=== PATIENT | male | born 1965 | race Caucasian/White ===

== ENCOUNTER 2020-03-09 08:35 | Outpatient (CLI) | payer OTHER, SELFPAY ==
--- NOTE | 2020-03-09 | US_ITS ---
WS: [id number] DIAGNOSTIC BILATERAL DIGITAL MAMMOGRAM WITH CAD LIMITED RIGHT BREAST ULTRASOUND HISTORY: breast mass, RIGHT side. COMPARISON: None available. TECHNIQUE: Bilateral craniocaudad, mediolateral oblique, and mediolateral views are submitted. Spot c ompression RIGHT MLO. Computer aided detection utilized. Breast composition: The breasts are almost entirely fatty. Palpable marker is placed over the superio r lateral RIGHT breast. There is no underlying mass or distortion. No soft tissue thickening. Postsur gical changes in the anterior LEFT breast from prior lumpectomy from cancer. RIGHT breast ultrasound, limited. Ultrasound directed to 6:00 in the area of the palpable abnormality. There is no underlying mass. No suspicious findings. US/US breast RT limited* [id number] IMPRESSION: BI-RADS: 2-Benign FOLLOW UP: See Report No RIGHT breast abnormality noted in this male patient.
--- NOTE | 2020-03-09 08:30 | MM_ITS ---
WS: [id number] DIAGNOSTIC BILATERAL DIGITAL MAMMOGRAM WITH CAD LIMITED RIGHT BREAST ULTRASOUND HISTORY: breast mass, RIGHT side. COMPARISON: None available. TECHNIQUE: Bilateral craniocaudad, mediolateral oblique, and mediolateral views are submitted. Spot c ompression RIGHT MLO. Computer aided detection utilized. Breast composition: The breasts are almost entirely fatty. Palpable marker is placed over the superio r lateral RIGHT breast. There is no underlying mass or distortion. No soft tissue thickening. Postsur gical changes in the anterior LEFT breast from prior lumpectomy from cancer. RIGHT breast ultrasound, limited. Ultrasound directed to 6:00 in the area of the palpable abnormality. There is no underlying mass. No suspicious findings. MM/[place] [id number] IMPRESSION: BI-RADS: 2-Benign FOLLOW UP: See Report No RIGHT breast abnormality noted in this male patient.
== END 2020-03-09 08:36 | disposition home or self-care (01) ==
LOC: RADSHAW 08:41
PROVIDERS: PCP Emergency Medicine Emergency Medical Services; Visit Provider Surgery
DX: N63.15 Unspecified lump in the right breast, overlapping quadrants (principal)
CPT/HCPCS: 76642; 77066

== ENCOUNTER 2021-10-01 15:09 | Emergency (ER) | payer OTHER, SELFPAY ==
--- NOTE | 2021-10-01 15:12 | CTR_ITS ---
PROCEDURE INFORMATION: Exam: CT Lumbar Spine Without Contrast Exam date and time: 10/01/2021 4:09 PM Age: 56 years old Clinical indication: Low back pain TECHNIQUE: Imaging protocol: Computed tomography images of the lumbar spine without contrast. Radiation optimization: All CT scans at this facility use at least one of these dose optimization techniques: automated exposure control; mA and/or kV adjustment per patient size (includes targeted exams where dose is matched to clinical indication); or iterative reconstruction. COMPARISON: No relevant prior studies available. RADIATION DOSE METRICS: Total DLP (mGy-cm): 2207.21 FINDINGS: Vertebrae: No acute fracture. Normal alignment. Discs/Spinal canal/Neural foramina: No significant disc protrusion. No severe spinal canal stenosis. No significant neural foraminal narrowing. Soft tissues: Unremarkable. CT/CT lumbar spine wo con* [id number] IMPRESSION: No acute findings.
[2021-10-01 15:33] VITALS: BP 135/85; PULSE 67; RESP 14; TEMP 36.8; O2SAT 97; BMI 29.5
--- NOTE | 2021-10-01 15:52 | ED_ITS ---
HPI - Back Pain/Injury General: Chief Complaint: Back Pain/Injury Stated Complaint: lower back catscan/xray Time Seen by Provider: 10/01/21 15:41 History of Present Illness: Patient is a 56-year-old male who comes to the ED with lower back pain. [facility] for further evaluation and to get a CT of the lumbar spine. He has a history of degenerative disc disease. His back pain started approximately 1 week ago. He denies any known fall, trauma or injury to cause lower back pain. Back pain is gradually progressed and gotten more painful over the past week. Endorses pain radiating down right leg. He rates his pain currently 9 out of 10. Certain movements with his torso causes increased pain or spasms in lower back. Denies any bladder or bowel incontinence, lower extremity weakness or any pelvic anesthesia. Associated symptoms: Deny abdominal pain, chills, dysuria, fatigue, fever(s), hematuria, nausea or vomiting Review of Systems Const: Denies: fever(s), chills or fatigue Eyes: Denies: change in vision or eye discomfort ENMT: Denies: throat pain, odynophagia, nasal discharge or nasal congestion Card: Denies: chest pain, palpitations, edema, swelling of feet/ankles, dyspnea on exertion or orthopnea Resp: Denies: dyspnea, productive cough or non-productive cough GI: Denies: abdominal pain, nausea, vomiting, diarrhea, constipation or hematochezia : Denies: flank pain, difficulty urinating, dysuria or hematuria Musc: Reports: back pain; Denies: neck pain or extremity swelling Skin/Breast: Denies: rash or new lesions Neuro: Denies: headache(s), numbness in extremities or weakness in extremities PFS ED PFSH: Medical History GERD (gastroesophageal reflux disease) Osteoarthritis Surgical History H/O circumcision H/O colonoscopy 2018 H/O esophagogastroduodenoscopy H/O excision of mass H/O lumpectomy left and right breast H/O thyroidectomy left H/O wrist surgery with hardware History of tonsillectomy S/P shoulder surgery Family History Mother CAD (coronary artery disease) Diabetes Hypertension Family/Other Cancer Denies family history of Anesthesia complication Bleeding disorder Social History Smoking and tobacco status: never smoked Alcohol intake: never Household members: spouse Marital status: Current occupational status: retired History of recent travel: No Physical Exam Const: COMMON NORMALS: patient oriented x3 and alert GENERAL APPEARANCE: cooperative HENMT: COMMON NORMALS: normocephalic HEAD & SCALP: normocephalic MOUTH: Normal oral and palatal mucosa present THROAT: posterior oropharynx normal and uvula midline Eye: COMMON NORMALS: Equal, round and reactive pupils present and conjunctivae normal CONJUNCTIVA: Yes conjunctivae normal PUPIL: Yes Equal, round and reactive pupils present Neck/C-Spine: COMMON NORMALS: supple GENERAL: Yes normal visual inspection Resp: COMMON NORMALS: normal respiratory effort, No retractions, No use of accessory muscles and clear to auscultation bilaterally AUSCULTATION: clear to auscultation bilaterally Cardio: COMMON NORMALS: regular rate, regular rhythm, S1 normal heart sound present, S2 normal heart sound present, No gallops present (Cardio), No clicks present (Cardio), No murmurs present (Cardio) and Peripheral pulses 2+ throughout RATE: regular rate RHYTHM: regular rhythm HEART SOUNDS: S1 normal heart sound present and S2 normal heart sound present PERIPHERAL PULSES: Peripheral pulses 2+ throughout GI: COMMON NORMALS: Normal to inspection, nondistended, normoactive bowel sounds present, Soft to palpation, non-tender and no masses PALPATION: Yes Soft to palpation : COMMON NORMALS: Yes no CVA tenderness BLADDER/KIDNEY EXAM: Yes no CVA tenderness Back/Pelvis: COMMON NORMALS: no CVA tenderness LUMBAR SPINE/LOWER BACK: Yes pain with ROM, Yes lumbar spinal tenderness Lumbar spinal tenderness location: L3, L4 and L5 and Yes paraspinal muscle tenderness Lumbar paraspinal muscle tenderness: bilateral Extremity: COMMON NORMALS: normal to inspection Neuro: COMMON NORMALS: patient oriented x3 and moves all extremities SENSORIUM/ORIENTATION: Yes alert Skin: GENERAL SKIN EXAM: dry skin Course Vital Signs: Vital signs: Vital Signs Temperature 98.3 F 10/01/21 15:33 Pulse Rate 67 10/01/21 15:33 Respiratory Rate 15 10/01/21 16:38 Blood Pressure 135/85 10/01/21 15:33 Pulse Oximetry 97 10/01/21 16:38 MDM - Back Pain/Injury Medical Decision Making Patient is a 56-year-old male comes to the ED with lower back pain that radiates down right leg. Symptoms have been going on now for a week. Denies any injury or trauma to cause symptoms. He says he has a history of degenerative disc d isease. [facility] done of his lumbar spine. Dr. Lin ordered the CT lumbar spine of the patient while he was in waiting room and CT imaging was performed before patient was brought back into room for me to evaluate them. He has no cauda equina symptoms. vitals are stable. He has some bilateral lumbar paraspinal muscle tenderness along with some lumbar spinal tenderness around L3-L4 and L5. Rest of exam is benign. CT of lumbar spine showed no acute fractures or findings. Patient was given a shot of a steroid, Norflex and a Percocet here in the ED to help with symptoms. He was diagnosed with lumbar radiculopathy he was discharged home with a prescription for prednisone, a muscle relaxer and Celebrex for pain. He was told to follow-up with his PCP in the next week for reevaluation. Return to ED precautions given. Patient understood and agreed with plan. Labs Radiology Impressions Lumbar Spine CT 10/01/21 15:12 IMPRESSION: No acute findings. Discharge Plan Discharge Patient Disposition: Home Clinical Impression: Lumbar radiculopathy Condition: Stable Prescriptions: New cyclobenzaprine 10 mg tablet 10 mg PO BID PRN (Reason: muscle spasm) Qty: 20 0RF Celebrex 100 mg capsule 100 mg PO BID PRN (Reason: pain) Qty: 30 0RF prednisone 20 mg tablet 20 mg PO BID 7 Days Qty: 14 0RF No Action omeprazole 20 mg capsule,delayed release(DR/EC) 20 mg PO TID 0RF sucralfate [Carafate] 1 gram tablet 1 gm PO TID 0RF methocarbamol 750 mg tablet 750 mg PO TID 0RF diclofenac potassium 50 mg tablet 50 mg PO BID 0RF tramadol 50 mg tablet 50 mg PO TID PRN0RF trazodone 100 mg tablet 100 mg PO DAILY 0RF Discharge Orders: Discharge ED (Routine); Ordered 10/01/21 Ordered By: Gerardo Chavira Referrals: Josue Villegas, DO [Primary Care Provider] - Discharge Diet: Regular Discharge Activity: Increase activity as tolerated Patient Instructions: Lumbar Radiculopathy (ED) Activity Restrictions/Additional Instructions: Follow-up with medical provider as directed in the next 5 to 7 days reevaluation.Take medications as prescribed. Cyclobenzaprine is a muscle relaxer and can cause some drowsiness so take at night before going to bed. You can take either your previously prescribed diclofenac or the Celebrex I am pres cribing for pain. Do not take both the Celebrex and diclofenac daily, so choose one medication daily to take for pain. You can start taking the steroid prescription tomorrow, since you were given a dose of steroid here in the ED. Apply cold pack or heat on lower back to help with symptoms. Stretch lower back daily. Return to the ER or your medical provider if condition worsens. Please read and understand discharge instructions. Thank you for choosing [facility] for your healthcare needs today. Please realize this is an emergency room and that we are providing you with a medical screening exam and this may not be complete and all inclusive of all the testing and or work up that you may need to determine your ailment or severity of your illness. It is very important that you follow up as instructed or that you return to the Emergency Department should you have concerns or if your condition changes or worsens in any way. Coding Level of Care Code ED Advertising Coordinator for Ciara Singh Exam Comprehensive
[2021-10-01 16:38] VITALS: RESP 15; O2SAT 97
[2021-10-01] MEDS: orphenadrine 30 mg/mL Inj 2 mL 60 MG IM (16:38)
[2021-10-01] MEDS: dexamethasone 10 mg/mL INJ IM (16:38)
[2021-10-01] MEDS: oxyCODONE-APAP 5-325 mg Tablet 1 TAB PO (16:38)
== END 2021-10-01 17:24 | disposition home or self-care (01) ==
PROVIDERS: Emergency Provider Physician Assistant; PCP Emergency Medicine Emergency Medical Services
DX: M54.16 Radiculopathy, lumbar region (principal)
CPT/HCPCS: 72131; 96372; 99283; J1100; J2360

== ENCOUNTER → 2022-05-26 09:15 | Outpatient (BNVA) | payer OTHER, SELFPAY | PROVIDERS: PCP Emergency Medicine Emergency Medical Services; Referring Provider Emergency Medicine Emergency Medical Services; Visit Provider Physician Assistant | DX: M54.12 Radiculopathy, cervical region (principal); M47.812 Spondylosis without myelopathy or radiculopathy, cervical region | CPT/HCPCS: 72050; 99203 ==

== ENCOUNTER 2022-06-15 11:30 | Outpatient (CLI) | payer OTHER, SELFPAY ==
--- NOTE | 2022-06-15 11:45 | MR_ITS ---
WS: [id number] MRI CERVICAL SPINE NONCONTRAST HISTORY: LEFT arm numbness and pain. COMPARISON: Cervical spine radiographs 05/26/2022 Technique: Multiplanar, multisequence noncontrast imaging of the cervical spine. Normal posterior cervical alignment. No fractures or marrow edema. Signal within the cervical cord is normal. Visualized posterior fossa is unremarkable. Craniocervical junction, C1 and C2 relationship, odontoid process and soft tissues are normal. C2-C3: Normal. C3-C4: Normal. C4-C5: Mild disc bulging and facet arthritis. Mild central with bilateral foraminal stenosis. Predomi nantly due to osteophytes and disc disease. C5-C6: Mild disc bulging with a central disc protrusion. Disc protrusion extends greatest to the RIGH T. Effacement of ventral CSF but no displacement of the cord. Mild central with moderate bilateral fo raminal stenosis. C6-C7: No stenosis. Bilateral nerve root sleeve diverticula. C7-T1: No stenosis. Bilateral nerve root sleeve diverticula. Asymmetric appearance of the thyroid gland. The LEFT lobe is enlarged while the RIGHT lobe is not vis ualized. No history of surgery. MR/MR cervical spin wo con* [id number] IMPRESSION: 1. Mild central with moderate bilateral foraminal stenosis at C5-6 due to disc and osteophyte disease. Slightly greater disc encroachment into the RIGHT. 2. Mild central and bilateral foraminal stenosis at C4-5.
== END 2022-06-15 11:31 | disposition home or self-care (01) ==
LOC: RAD 11:34
PROVIDERS: PCP Emergency Medicine Emergency Medical Services; Visit Provider Physician Assistant
DX: M54.2 Cervicalgia (principal); M48.02 Spinal stenosis, cervical region
CPT/HCPCS: 72141

== ENCOUNTER → 2022-07-21 14:31 | Outpatient (BNVA) | payer OTHER, SELFPAY | PROVIDERS: PCP Emergency Medicine Emergency Medical Services; Visit Provider Physician Assistant | DX: M47.22 Other spondylosis with radiculopathy, cervical region (principal) | CPT/HCPCS: 99213 ==

== ENCOUNTER → 2022-08-31 10:59 | Outpatient (BNVA) | payer OTHER, SELFPAY | PROVIDERS: PCP Emergency Medicine Emergency Medical Services; Referring Provider Emergency Medicine Emergency Medical Services; Visit Provider Anesthesiology Pain Medicine | DX: M47.812 Spondylosis without myelopathy or radiculopathy, cervical region (principal); M54.12 Radiculopathy, cervical region | CPT/HCPCS: 99204 ==

== ENCOUNTER → 2022-10-31 09:55 | Outpatient (BNVA) | payer OTHER, SELFPAY | PROVIDERS: PCP Emergency Medicine Emergency Medical Services; Visit Provider Anesthesiology Pain Medicine | DX: M47.812 Spondylosis without myelopathy or radiculopathy, cervical region (principal); M54.12 Radiculopathy, cervical region | CPT/HCPCS: 99214 ==

== ENCOUNTER → 2023-09-07 12:54 | Outpatient (BNVA) | payer OTHER, SELFPAY | PROVIDERS: PCP Emergency Medicine Emergency Medical Services; Referring Provider Emergency Medicine Emergency Medical Services; Visit Provider Dermatology | DX: D48.5 Neoplasm of uncertain behavior of skin (principal); L02.92 Furuncle, unspecified; L82.1 Other seborrheic keratosis; L57.0 Actinic keratosis; L21.8 Other seborrheic dermatitis | CPT/HCPCS: 11102; 17000; 99204 ==

== ENCOUNTER 2023-10-18 16:03 | Emergency (ER) | payer OTHER, SELFPAY ==
[2023-10-18 16:05] VITALS: BP 142/98; PULSE 62; RESP 18; TEMP 36.8; O2SAT 98; BMI 27.7
--- NOTE | 2023-10-18 16:07 | XRR_ITS ---
PROCEDURE INFORMATION: Exam: XR Chest Exam date and time: 10/18/2023 4:14 PM Age: 58 years old Clinical indication: Pain; Angina pectoris; Additional info: Cp TECHNIQUE: Imaging protocol: Radiologic exam of the chest. Views: 1 view. COMPARISON: MR cervical spin wo con* [id number] 06/15/2022 12:04 PM FINDINGS: Airway: Patent Lungs: Unremarkable. No consolidation. Pleural spaces: Unremarkable. No pleural effusion. No pneumothorax. Heart/Mediastinum: Heart magnified by technique. Bones/joints: No acute skeletal abnormality or aggressive osseous lesion. XR/XR chest 1V portable [id number] IMPRESSION: No acute findings.
--- NOTE | 2023-10-18 16:07 | CTR_ITS ---
PROCEDURE INFORMATION: Exam: CT Head Without Contrast Exam date and time: 10/18/2023 4:20 PM Age: 58 years old Clinical indication: Headache; Patient HX: Pain to back left side of head, denies injury; Additional info: CARREON TECHNIQUE: Imaging protocol: Computed tomography of the head without contrast. Radiation optimization: All CT scans at this facility use at least one of these dose optimization techniques: automated exposure control; mA and/or kV adjustment per patient size (includes targeted exams where dose is matched to clinical indication); or iterative reconstruction. COMPARISON: MR cervical spin wo con* [id number] 06/15/2022 12:04 PM RADIATION DOSE METRICS: Total DLP (mGy-cm): 1365 FINDINGS: Brain: Age-related brain atrophy and mild chronic small vessel disease without acute intracranial hemorrhage, midline shift, or mass effect. Cerebral ventricles: Mild compensatory ventricular dilation. Paranasal sinuses: Visualized sinuses are unremarkable. No fluid levels. Mastoid air cells: Visualized mastoid air cells are well aerated. Bones: Unremarkable. No acute fracture. Soft tissues: Unremarkable. CT/CT head wo con* [id number] IMPRESSION: No acute intracranial abnormality.
--- NOTE | 2023-10-18 16:08 | ECG_ITS ---
[facility] Test Date: 2023-10-18 Pat Name: Eliezer Lopez Department: Room: Gender: Male Archivist: : 1965 Requested By: Bon Serna Order Number: [id number] Reynaldo MD: Reid Woodall M.D. Measurements Intervals [place] Rate: 66 P: 53 OK: 193 QRS: 22 QRSD: 89 T: -18 QT: 423 QTc: 446 Interpretive Statements SINUS RHYTHM WITH FREQUENT VENTRICULAR PREMATURE COMPLEXES IN A BIGEMINAL PATTERN POSSIBLE LEFT ATRIAL ENLARGEMENT [-0.1mV P-WAVE IN V1/V2] NONSPECIFIC ST & T-WAVE ABNORMALITY No previous ECG available for comparison Electronically Signed On 10-18-2023 17:02:40 CDT by Reid Woodall M.D. [id number]
--- NOTE | 2023-10-18 16:08 | W.ED.HA ---
HPI - Headache General: Chief Complaint: Arrhythmia/Palpitations Stated Complaint: Palpitations, CARREON Time Seen by Provider: 10/18/23 16:07 Source: patient and EMS Mode of arrival: EMS Limitations: no limitations History of Present Illness: 58-year-old male who has been having he states headaches for quite some times he had went to the [place] today as he has been having off-and-on headaches it has been mild for the last 3 weeks they are concerned that his pulse was low and said his pulse was in the 30s and was concerned his heart rate was irregular and called EMS. He does appear to have frequent PVCs he is in bigeminy here heart rate is 66. He has had some mild aches he states across his chest but no severe chest pain states has been going on for weeks as well denies any shortness of breath Associated symptoms: Reports chest pain; Deny fever(s), nausea, rash or vomiting Review of Systems Const: Denies: fever(s), chills, body aches or change in appetite Eyes: Denies: blurry vision or eye discomfort ENMT: Denies: throat pain or dental pain Card: Reports: chest pain and irregular heart rhythm Resp: Denies: dyspnea GI: Denies: abdominal pain, nausea, vomiting or diarrhea Musc: Denies: neck pain or back pain Skin/Breast: Denies: rash Neuro: Reports: headache(s) [facility] ED PFSH: Medical History (Updated 10/18/23 @ 17:25 by Bon Serna MD) GERD (gastroesophageal reflux disease) Osteoarthritis Surgical History S/P shoulder surgery H/O lumpectomy left and right breast H/O excision of mass H/O colonoscopy 2018 History of tonsillectomy H/O wrist surgery with hardware H/O circumcision H/O esophagogastroduodenoscopy H/O thyroidectomy left Family History Mother CAD (coronary artery disease) Diabetes Hypertension Family/Other Cancer Denies family history of Anesthesia complication Bleeding disorder Social History Smoking and tobacco/nicotine status: never used tobacco/nicotine Alcohol intake: never Substance/Drug Use: never Household members: spouse Marital status: Current occupational status: retired Physical Exam Const: COMMON NORMALS: no acute distress, patient oriented x3 and healthy appearing HENMT: COMMON NORMALS: normocephalic and atraumatic HEAD & SCALP: normocephalic and atraumatic Eye: COMMON NORMALS: Equal, round and reactive pupils present and EOMs intact bilaterally PUPIL: Yes Equal, round and reactive pupils present Neck/C-Spine: COMMON NORMALS: full ROM and supple Chest: COMMONS NORMALS: normal inspection of the chest Resp: COMMON NORMALS: normal respiratory effort, No retractions, No use of accessory muscles and clear to auscultation bilaterally AUSCULTATION: clear to auscultation bilaterally Cardio: COMMON NORMALS: regular rate, regular rhythm and No murmurs present (Cardio) RATE: regular rate RHYTHM: regular rhythm GI: COMMON NORMALS: Normal to inspection, nondistended, normoactive bowel sounds present, Soft to palpation, non-tender and no masses PALPATION: Yes Soft to palpation Extremity: COMMON NORMALS: normal to inspection and full ROM Neuro: COMMON NORMALS: patient oriented x3, moves all extremities and no focal motor deficits Psych: COMMON NORMALS: mental status grossly normal, Normal thought process present and cooperative THOUGHT PROCESS: Normal thought process present Skin: COMMON NORMALS: no rashes or lesions noted and no wounds GENERAL SKIN EXAM: no rashes or lesions noted Course Vital Signs: Vital signs: Vital Signs Temperature 98.2 F 10/18/23 16:05 Pulse Rate 66 10/18/23 16:53 Respiratory Rate 15 10/18/23 16:53 Blood Pressure 136/79 10/18/23 16:53 Pulse Oximetry 96 10/18/23 16:53 Oxygen Delivery Me thod Room Air 10/18/23 16:05 MDM - Headache Medical Decision Making Patient presents here with complaint of headache his head CT is normal sound like tension headaches no signs of meningitis or migraine hemorrhage. [facility] rate heart rate here has been in the 70s he has had PVCs at times. His troponin here is negative no signs of ACS we will get him cardiology follow-up he is to return if worsening he understands agrees to plan Medical Records I reviewed the patient's medical records. Lab Data I reviewed the patient's lab results. 10/18/23 15:49 10/18/23 15:49 Radiology Impressions Chest X-Ray 10/18/23 16:07 IMPRESSION: No acute findings. Head CT 10/18/23 16:07 IMPRESSION: No acute intracranial abnormality. Laboratory Results WBC 7.35 10^3/uL (3.29-11.43) 10/18/23 15:49 RBC 5.79 10^6/uL (3.85-5.65) H 10/18/23 15:49 Hgb 16.50 g/dL (11.27-16.99) 10/18/23 15:49 Hct 48.2 % (37-53) 10/18/23 15:49 MCV 83.2 fl (82-101) 10/18/23 15:49 MCH 28.5 pg (27-33) 10/18/23 15:49 MCHC 34.2 g/dL (30-55) 10/18/23 15:49 RDW 14.1 % (12.1-15.1) 10/18/23 15:49 Plt Count 252 10^3/cmm (157-399) 10/18/23 15:49 MPV 11.6 fL (7.4-10.4) H 10/18/23 15:49 Neut % (Auto) 51.1 % 10/18/23 15:49 Lymph % (Auto) 37.6 % 10/18/23 15:49 [place] % (Auto) 7.3 % 10/18/23 15:49 Eos % (Auto) 2.6 % 10/18/23 15:49 Baso % (Auto) 1.0 % 10/18/23 15:49 Neut # (Auto) 3.76 10^3/uL (1.8-7.7) 10/18/23 15:49 Lymph # (Auto) 2.8 10^3/uL (0.8-4.8) 10/18/23 15:49 [place] # (Auto) 0.5 10^3/uL (0.2-0.9) 10/18/23 15:49 Eos # (Auto) 0.2 10^3/uL (0.0-0.8) 10/18/23 15:49 Baso # (Auto) 0.1 10^3/uL (0.0-0.1) 10/18/23 15:49 Nucleated RBC % (auto) 0 % 10/18/23 15:49 Nucleated RBCs # 0.0 /100WBC 10/18/23 15:49 Sodium 141 mmol/L (136-145) 10/18/23 15:49 Potassium 3.9 mmol/L (3.5-5.1) 10/18/23 15:49 Chloride 101 mmol/L (98-107) 10/18/23 15:49 Carbon Dioxide 25 mmol/L (22-29) 10/18/23 15:49 Anion Gap 18.9 (5-19) 10/18/23 15:49 BUN 14 mg/dL (6-20) 10/18/23 15:49 Creatinine 0.9 mg/dL (0.7-1.2) 10/18/23 15:49 GFR Calculation 86.7 mL/min (90-130) L 10/18/23 15:49 Glucose 82 mg/dL (65-115) 10/18/23 15:49 Calculated Osmolality 292 mOsm/kg (285-295) 10/18/23 15:49 Calcium 9.5 mg/dL (8.5-10.5) 10/18/23 15:49 Total Bilirubin 0.7 mg/dL (0.15-1.2) 10/18/23 15:49 AST 15 U/L (0-40) 10/18/23 15:49 ALT 17 U/L (0-41) 10/18/23 15:49 Alkaline Phosphatase 85 U/L (40-130) 10/18/23 15:49 Troponin T Baseline 10 ng/L (0-15) 10/18/23 15:49 Total Protein 7.4 g/dL (6.6-8.7) 10/18/23 15:49 Albumin 4.5 g/dL (3.5-5.2) 10/18/23 15:49 Globulin 2.9 g/dL (1.3-4.6) 10/18/23 15:49 Lipase 17 U/L (13-60) 10/18/23 15:49 All radiology interpretation(s) finalized by discharge EKG Data EKG 1: I personally reviewed and interpreted this EKG as follows: EKG interpretation date: 10/18/23 EKG interpretation time: 16:08 Interpretation: nsr hr 66 frequent pvc in bigemin no st elevaion qrs 89 qtc 437 Discharge Plan Discharge Patient Disposition: Home Clinical Impression: Ventricular premature beats, Headache Condition: Stable Prescriptions: No Action omeprazole 20 mg capsule,delayed release(DR/EC) 20 mg PO TID sucralfate [Carafate] 1 gram tablet 1 gm PO TID tramadol 50 mg tablet 50 mg PO TID PRN trazodone 100 mg tablet 100 mg PO DAILY mirtazapine 15 mg tablet 15 mg PO DAILY rivaroxaban 20 mg tablet 20 mg PO DAILY Rx Instructions: must administer with evening meal pregabalin [Lyrica] 150 mg capsule 150 mg PO DAILY cyclobenzaprine 10 mg tablet 10 mg PO BID PRN (Reason: muscle spasm) Qty: 20 0RF Celebrex 100 mg capsule 100 mg PO BID PRN (Reason: pain) Qty: 30 0RF Discharge Orders: Discharge ED (Routine); Ordered 10/18/23 Ordered By: Bon Serna Referrals: Josue Villegas, [Primary Care Provider] - 4-7 days Discharge Diet: Advance as tolerated Discharge Activity: Resume usual activity Patient Instructions: Premature Ventricular Contractions (ED), General Headache (ED) Coding Level of Care Code ED Forklift Driver for Ciara Singh
[2023-10-18 16:15] VITALS: PULSE 89; RESP 20; O2SAT 98
[2023-10-18 16:21] LABS: Basophils # 0.1 10^3/uL (0.0-0.1); Eosinophils # 0.2 10^3/uL (0.0-0.8); Eosinophils % 2.6 %; Hematocrit 48.2 % (37-53); Lymphocytes # 2.8 10^3/uL (0.8-4.8); Lymphocytes % 37.6 %; Mean Corpuscular HGB Conc 34.2 g/dL (30-55); Mean Corpuscular Hemoglobin 28.5 pg (27-33); Mean Corpuscular Volume 83.2 fl (82-101); Mean Platelet Volume 11.6 fL (7.4-10.4); Monocytes # 0.5 10^3/uL (0.2-0.9); Monocytes % 7.3 %; Neutrophils # 3.76 10^3/uL (1.8-7.7); Neutrophils % 51.1 %; Nucleated Red Blood Cells % 0 %; Platelet Count 252 10^3/cmm (157-399); Red Blood Count 5.79 10^6/uL (3.85-5.65); Red Cell Distribution Width 14.1 % (12.1-15.1); White Blood Count 7.35 10^3/uL (3.29-11.43)
[2023-10-18 16:41] LABS: Alanine Aminotransferase 17 U/L (0-41); Albumin Level 4.5 g/dL (3.5-5.2); Alkaline Phosphatase 85 U/L (40-130); Aspartate Amino Transferase 15 U/L (0-40); Blood Urea Nitrogen 14 mg/dL (6-20); Calcium 9.5 mg/dL (8.5-10.5); Carbon Dioxide 25 mmol/L (22-29); Chloride 101 mmol/L (98-107); Creatinine Clr Calc Pharmacy 124.4993; Globulin 2.9 g/dL (1.3-4.6); Glomerular Filtration Rate 86.7 mL/min (90-130); Glucose 82 mg/dL (65-115); Lipase 17 U/L (13-60); Osmolality Calculated 292 mOsm/kg (285-295); Sodium 141 mmol/L (136-145); Total Bilirubin 0.7 mg/dL (0.15-1.2); Total Protein 7.4 g/dL (6.6-8.7)
[2023-10-18 16:43] LABS: Anion Gap 18.9 (5-19); Potassium 3.9 mmol/L (3.5-5.1)
[2023-10-18 16:53] VITALS: BP 136/79; PULSE 66; RESP 15; O2SAT 96
[2023-10-18 16:53] LABS: Troponin(5th) Baseline 10 ng/L (0-15)
[2023-10-18] MEDS: aspirin 81 mg Chew Tablet 324 MG PO (16:53)
[2023-10-18 17:31] VITALS: BP 136/79; PULSE 66; RESP 15; O2SAT 96
--- NOTE | 2023-10-19 07:17 | DCPLANNER ---
message [facility] for er f/u
--- NOTE | 2023-10-19 07:18 | DCPLANNER ---
emailed august at [facility] for [facility] for cardiology
== END 2023-10-18 17:32 | disposition home or self-care (01) ==
PROVIDERS: Emergency Provider Emergency Medicine; PCP Emergency Medicine Emergency Medical Services
DX: I49.3 Ventricular premature depolarization (principal); R51.9 Headache, unspecified
CPT/HCPCS: 70450; 71045; 80053; 83690; 84484; 85025; 93005; 99285

== ENCOUNTER → 2024-09-05 09:54 | Outpatient (BNVA) | payer OTHER, SELFPAY | PROVIDERS: PCP Emergency Medicine Emergency Medical Services; Visit Provider Dermatology | DX: L73.9 Follicular disorder, unspecified (principal); L21.8 Other seborrheic dermatitis; L82.1 Other seborrheic keratosis; D22.5 Melanocytic nevi of trunk; Z08 Encounter for follow-up examination after completed treatment for malignant neoplasm; Z85.828 Personal history of other malignant neoplasm of skin; Z80.8 Family history of malignant neoplasm of other organs or systems | CPT/HCPCS: 99214 ==

== ENCOUNTER → 2025-03-18 08:19 | Outpatient (BNVA) | payer OTHER, SELFPAY | PROVIDERS: PCP Emergency Medicine Emergency Medical Services; Referring Provider Family Medicine Geriatric Medicine; Visit Provider Internal Medicine | DX: R94.2 Abnormal results of pulmonary function studies (principal); R06.02 Shortness of breath; R06.2 Wheezing; Z99.89 Dependence on other enabling machines and devices; J44.9 Chronic obstructive pulmonary disease, unspecified; T78.40XA Allergy, unspecified, initial encounter; X58.XXXA Exposure to other specified factors, initial encounter | CPT/HCPCS: 36415; 71046; 85025; 86003; 99204; Q3014 ==

== ENCOUNTER 2025-04-18 10:37 | Emergency (ER) | payer OTHER, SELFPAY ==
[2025-04-18 10:55] VITALS: BP 145/92; PULSE 64; RESP 17; TEMP 36.8; O2SAT 97; BMI 29.3
--- NOTE | 2025-04-18 11:09 | ED_ITS ---
HPI - Back Pain/Injury General: Chief Complaint: Back Pain/Injury Stated Complaint: Lower back pain Time Seen by Provider: 04/18/25 11:07 Source: patient Mode of arrival: wheelchair Limitations: no limitations History of Present Illness: Patient is a 59-year-old male presents to ED today with complaint of lower back pain. Patient states yesterday he was bending over to lift a box when he immediately felt something in his lower back like lightning . Patient states pain starts in his lower back and radiates down both legs (right > left). States he normally has some degree of neuropathy to his lower legs. He reportedly went to [facility] ED yesterday but left before he was seen due to lengthy wait times. He reportedly was seen at the [facility] today and told to come to the emergency department stating because I could have a smashed or a ruptured disc . Patient states he is not able to ambulate secondary to pain. He has been trying to use a walker at home. He denies saddle anesthesia. He has not had any episodes of bowel/bladder incontinence/retention. MD elicited complaint: back pain and back injury Onset (ago): day(s) (yesterday) Timing: constant Severity: severe Pain scale (0-10): 10 Quality: burning, sharp and stabbing Location: lumbar spine Radiation: left leg below the knee and right leg below the knee Exacerbating factors: movement Relieving factors: none Associated symptoms: Reports no associated symptoms and difficulty walking (secondary to back pain); Deny abdominal pain, chills, dysuria, fatigue, fever(s) or hematuria Work related injury: No Related Data Home Medications ?Medication ?Instructions ?Recorded ?Confirmed albuterol sulfate 90 mcg/actuation 2 puff inhalation Q ID PRN 03/18/25 04/18/25 aerosol inhaler (Ventolin HFA) Shortness Of Breath carboxymethylcellulose sodium 0.5 1 drp ophthalmic (ey e) QID 03/18/25 04/18/25 % eye drops in a dropperette clindamycin phosphate 1 % topical 1 applic topical BID 03/18/25 04/18/25 solution cyanocobalamin (vitamin B-12) 1,000 mcg PO DAILY 03/1804/18/25 1,000 mcg capsule folic acid 1 mg tablet 1 mg PO DAILY 03/18/2504/18 hydroxyzine HCl 25 mg tablet 25 mg PO BEDTIME PRN slee p and 03/18/25 04/18/25 anxiety ketoconazole 2 % shampoo 1 applic topical .[id number] 03/18/25 04/18/25 ketoconazole 2 %-niacinamide 4 % 1 applic topical BID PRN Skin 03/18/25 04/18/25 topical cream Irritation ondansetron 4 mg disintegrating 4 mg PO Q8H PRN Nausea And Vomiting 03/18/25 04/18/25 tablet pantoprazole 20 mg tablet,delayed 20 mg PO DAILY 03/1804/18/25 release clobetasol 0.05 % scalp solution 1 applic topical DILAN Y PRN 04/18/25 04/18/25 scaling/itching sildenafil 100 mg tablet See Rx Instructions .Route . COMPLEX 04/18/25 04/18/25 Previous Rx's ?Medication ?Instructions ?Recorded fluticasone 250 mcg-salmeterol 50 1 inh inhalation BID #60 ea 03/19/25 mcg/dose blistr powdr for inhalation (Wixela Inhub) dexamethasone 6 mg tablet 6 mg PO DAILY #6 tabs hydrocodone 7.5 mg-acetaminophen 1 tab PO Q6H PRN pain #15 tabs 04/18/25 325 mg tablet ibuprofen 800 mg tablet 800 mg PO Q8H PRN pain #20 t abs 04/18/25 methocarbamol 500 mg tablet 1,000 mg (2 x 500 mg) PO Q 8H #30 04/18/25 tabs Allergies Allergy/AdvReac Type Severity Reaction Status Date / Time morphine AdvReac ADR-Vomitin Verified 04/18/25 11:01 g Review of Systems Const: Denies: fever(s), chills, body aches, fatigue or malaise Card: Denies: chest pain Resp: Denies: dyspnea GI: Denies: abdominal pain : Denies: flank pain, dysuria or hematuria Musc: Reports: back pain; Denies: neck pain, extremity pain, extremity swelling, joint pain, joint swelling, joint redness or joint warmth Skin/Breast: Denies: rash Neuro: Reports: numbness in extremities (bilateral LEs) and difficulty walking (secondary to back pain); Denies: headache(s), weakness in extremities, lack of coordination, dizziness or confusion PFSH ED PFSH: Medical History Pulmonary air trapping Wheezing GERD (gastroesophageal reflux disease) Osteoarthritis Surgical History S/P shoulder surgery H/O lumpectomy left and right breast H/O excision of mass H/O colonoscopy 2018 History of tonsillectomy H/O wrist surgery with hardware H/O circumcision H/O esophagogastroduodenoscopy H/O thyroidectomy left Family History Mother CAD (coronary artery disease) Diabetes Hypertension Family/Other Cancer Denies family history of Anesthesia complication Bleeding disorder Social History Smoking and tobacco/nicotine status: never used tobacco/nicotine Alcohol intake: never Substance/Drug Use: never Household members: spouse Marital status: Current occupational status: retired Physical Exam Const: COMMON NORMALS: average body habitus, patient oriented x3, no limitations, healthy appearing, alert and well nourished GENERAL APPEARANCE: cooperative and in distress (appears uncomfortable secondary to pain) ORIENTATION/CONSCIOUSNESS: Yes awake, Yes oriented to person, Yes oriented to place and Yes oriented to time Resp: COMMON NORMALS: normal respiratory effort and clear to auscultation bilaterally AUSCULTATION: clear to auscultation bilaterally Cardio: COMMON NORMALS: regular rate and regular rhythm RATE: regular rate RHYTHM: regular rhythm GI: COMMON NORMALS: Normal to inspection, nondistended, normoactive bowel sounds present, Soft to palpation, non-tender, No hepatosplenomegaly present and no masses PALPATION: Yes Soft to palpation and Yes No hepatosplenomegaly present : COMMON NORMALS: Yes no CVA tenderness BLADDER/KIDNEY EXAM: Yes no CVA tenderness Back/Pelvis: COMMON NORMALS: no CVA tenderness THORACIC SPINE/UPPER BACK: No thoracic spinal tenderness LUMBAR SPINE/LOWER BACK: Yes lumbar spinal tenderness, No paraspinal muscle spasm and No mass present PELVIS: Yes buttocks normal SACROILIAC JOINTS: Yes SI joints normal SACRUM: no tenderness COCCYX: no tenderness Extremity: COMMON NORMALS: normal to inspection, full ROM, capillary refill normal, no joint enlargement, no clubbing, cyanosis or edema, no calf tenderness and no pedal edema NARRATIVE EXTREMITY EXAM: DP/PT pulses to L LE were able to be palpated; cannot palpate them on R LE or find with doppler-he states he has poor circulation ; clinically would have a low suspicion for acute arterial occulsion/dissection but will go ahead and order US to confirm flow GENERAL: Yes normal exam except as noted Neuro: COMMON NORMALS: patient oriented x3, moves all extremities, no focal motor deficits and no sensory deficits noted SENSORIUM/ORIENTATION: Yes alert, Yes oriented to person, Yes oriented to place and Yes oriented to time GAIT: Yes Unable to assess gait Skin: COMMON NORMALS: no rashes or lesions noted GENERAL SKIN EXAM: no rashes or lesions noted Course Vital Signs: Vital signs: Vital Signs Temperature 98.3 F 04/18/25 10:55 Pulse Rate 61 04/18/25 11:40 Respiratory Rate 20 H 04/18/25 11:40 Blood Pressure 142/97 04/18/25 11:40 Pulse Oximetry 99 04/18/25 11:40 Oxygen Delivery Me thod Room Air 04/18/25 11:40 MDM - Back Pain/Injury Medical Decision Making Patient here for lower back pain after he was bending over yesterday to lift something. CT scan showing small central disc protrusion at L5-S1 with slight contact on the S1 nerve roots and a mild disc encroachment into the right subarticular recess at L3-L4. Patient does feel somewhat better after medications given here. He does have chronic neuropathy to his legs. No acute neurologic deficits today. On initial examination, pulses to his right distal extremity were difficult to find hence why US arterial was ordered-no evidence for occulsion. Patient will be placed on medications to help with his discomfort and [facility] Return ED precautions discussed. Differential Diagnosis Likely lumbar radiculopathy, sciatica, strain of lumbar region and AAA Medical Records I reviewed the patient's medical records. Labs Radiology Impressions Lumbar Spine CT 04/18/25 11:24 IMPRESSION: 1. No acute lumbar spine fracture. 2. Slight stable anterior wedging of L1 may be congenital or from a prior injury. 3. Small central disc protrusion at L5-S1 with slight contact on the S1 nerve roots, RIGHT greater than LEFT. 4. Mild disc encroachment into the RIGHT subarticular recess at L3-4. Minimal disc contact on the traversing RIGHT L4 nerve root. All radiology interpretation(s) finalized by discharge Discharge Plan Discharge Patient Disposition: Home Clinical Impression: Lumbosacral radiculopathy at S1 Condition: Stable Prescriptions: New methocarbamol 500 mg tablet 1,000 mg PO Q8H Qty: 30 0RF ibuprofen 800 mg tablet 800 mg PO Q8H PRN (Reason: pain) Qty: 20 0RF dexamethasone 6 mg tablet 6 mg PO DAILY Qty: 6 0RF hydrocodone-acetaminophen 7.5-325 mg tablet 1 tab PO Q6H PRN (Reason: pain) Qty: 15 0RF No Action albuterol sulfate [Ventolin HFA] 90 mcg/actuation HFA aerosol inhaler 2 puff inhalation QID PRN (Reason: Shortness Of Breath) pantoprazole 20 mg tablet,delayed release (DR/EC) 20 mg PO DAILY ketoconazole 2 % shampoo 1 applic topical .2-3XWEEKLY folic acid 1 mg tablet 1 mg PO DAILY hydroxyzine HCl 25 mg tablet 25 mg PO BEDTIME PRN (Reason: sleep and anxiety) ondansetron 4 mg tablet,disintegrating 4 mg PO Q8H PRN (Reason: Nausea And Vomiting) clindamycin phosphate 1 % solution 1 applic topical BID carboxymethylcellulose sodium 0.5 % dropperette 1 drp ophthalmic (eye) QID cyanocobalamin (vitamin B-12) 1,000 mcg capsule 1,000 mcg PO DAILY ketoconazole-niacinamide 2-4 % cream 1 applic topical BID PRN (Reason: Skin Irritation) fluticasone propion-salmeterol [Wixela Inhub] 250-50 mcg/dose blister with device 1 inh inhalation BID Qty: 60 11RF sildenafil 100 mg Tablet See Rx Instructions .ROUTE .COMPLEX Rx Instructions: Take 1 tablet by mouth twice weekly as needed for erectile dysfunction. Administer 60 minutes prior to sexual activity. Limit 6 doses per 30 days. clobetasol 0.05 % Solution 1 applic TOPICAL DAILY PRN (Reason: scaling/itching) Discharge Orders: Discharge ED (Routine); Ordered 04/18/25 Ordered By: Patrica Hall Referrals: Josue Villegas DO [Primary Care Provider, Emergency Medicine] Patient Instructions: Lumbar Disc Herniation (ED), Lumbar Radiculopathy (ED), Opioid Safety, Pain Management, Patient Portal & [facility] Instructions Activity Restrictions/Additional Instructions: As we discussed, [facility] symptoms are not improving. You may return to the emergency department at anytime for worsening or uncontrollable pain, inability to ambulate, urinary retention or bowel incontinence, significant weakness to your legs, or any other concerns you may have. Print Language: Macanese Coding Level of Care Code ED Real Estate Rep for Ciara Singh
--- NOTE | 2025-04-18 11:24 | CT_ITS ---
WS: [id number] CT LUMBAR SPINE, noncontrast. HISTORY: back pain, lower leg paresthesias TECHNIQUE: Contiguous 2.0 mm axial imaging are performed. Sagittal and coronal reformats are submitted and reviewed. All CT scans at [facility] use at least one of these dose optimization techniques: automated exposure control; mA and/or kV adjustment per patient size (includes targeted exams where dose is matched to clinical indication); or iterative reconstruction. IV contrast: None DLP: 942.10 mGy.cm COMPARISON: 10/01/2021 Mild curvature of the lumbar spine. No acute fractures are identified. Very slight anterior wedging of L1 similar to 10/01/2021. 2 mm retrolisthesis of L1, L2 and L3. Disc spaces are well preserved. No fractures. Mild bilateral facet joint arthropathy at L4-5 and L5-S1. No destructive bone lesion. L1-2: Normal. L2-3: Normal. L3-4: Mild facet and ligamentum flavum hypertrophy. Mild annular disc bulging. Very mild encroachment into the RIGHT subarticular recess. Very minimal contact on the traversing RIGHT L4 nerve root. L4-5: Mild disc bulging with ligamentum flavum and facet arthritis. No stenosis. L5-S1: Small central disc protrusion. Very slight contact on the S1 nerve roots, RIGHT greater than LEFT. Paravertebral soft tissues are negative. CT/CT lumbar spine wo con* [id number] IMPRESSION: 1. No acute lumbar spine fracture. 2. Slight stable anterior wedging of L1 may be congenital or from a prior inju ry. 3. Small central disc protrusion at L5-S1 with slight contact on the S1 nerve roots, RIGHT greater than LEFT. 4. Mild disc encroachment into the RIGHT subarticular recess at L3-4. Minimal disc contact on the traversing RIGHT L4 nerve root.
[2025-04-18] MEDS: ondansetron 2 mg/ML SDV 2 mL 4 MG IVP (11:36)
[2025-04-18 11:40] VITALS: BP 142/97; PULSE 61; RESP 20; O2SAT 99
[2025-04-18] MEDS: HYDROmorphone 0.5 MG/0.5 ML INJ 1 MG IVP ×2 (11:40→13:26)
[2025-04-18] MEDS: orphenadrine 30 mg/mL Inj 2 mL 60 MG IVP (11:49)
--- NOTE | 2025-04-18 11:52 | USR_ITS ---
PROCEDURE INFORMATION: Exam: US Duplex Right Lower Extremity Arteries Or Arterial Bypass Grafts Exam date and time: 04/18/2025 12:54 PM Age: 59 years old Clinical indication: Pain; Other: Back; Additional info: Back pain, cannot find pulses TECHNIQUE: Imaging protocol: Right Real-time duplex scan of the arteries or arterial bypass grafts of the right lower extremity with 2-D suazo scale, color Doppler flow and spectral waveform analysis. Images documented and saved. COMPARISON: No relevant prior studies available. FINDINGS: Right common femoral artery: No occlusion or significant stenosis. Normal waveform. No pseudoaneurysm in the inguinal region. Right superficial femoral artery: No occlusion or significant stenosis. Normal waveform. Right popliteal artery: No occlusion or significant stenosis. Normal waveform. Right calf/foot arteries: No occlusion or significant stenosis in the visualized arteries. Normal waveforms. Dorsalis pedis artery is patent. Soft tissues: No hematoma or collection. US/[place] [id number] IMPRESSION: No stenosis or occlusion.
[2025-04-18 13:20] VITALS: BP 129/93; PULSE 62; O2SAT 93
[2025-04-18 13:47] VITALS: BP 167/94; PULSE 60; O2SAT 94
--- NOTE | 2025-04-18 13:47 | PC.NURSE ---
Pt up with walker and ambulated, pt voices pain relief and feeling better, pt able to ambulated well with walker.
== END 2025-04-18 13:48 | disposition home or self-care (01) ==
PROVIDERS: Emergency Provider Physician Assistant; PCP Emergency Medicine Emergency Medical Services
DX: M54.17 Radiculopathy, lumbosacral region (principal)
CPT/HCPCS: 72131; 93926; 96374; 96375; 96376; 99285; J1100; J1171; J1885; J2360; J2405

== ENCOUNTER → 2025-04-23 12:40 | Outpatient (BNVA) | payer OTHER, SELFPAY | PROVIDERS: PCP Emergency Medicine Emergency Medical Services; Referring Provider Family Medicine Geriatric Medicine; Visit Provider Internal Medicine | DX: R07.9 Chest pain, unspecified (principal); M47.812 Spondylosis without myelopathy or radiculopathy, cervical region | CPT/HCPCS: 93005; 99203 ==